=== PATIENT | male | born 1995 | race Caucasian/White ===

== ENCOUNTER 2017-01-14 09:59 | Inpatient (IN) | payer BC ==
[2017-01-14 12:44] VITALS: BMI 24.7
--- NOTE | 2017-01-14 13:14 | HP ---
COWS - Scale Resting Pulse: 1= OK 81-100 Sweatin= Chills/Flushing Restless Observation: 3= Extraneous Movement Pupil Size: 2= Moderately Dilated Bone or Joint Aches: 4=Acute Joint/Muscle Pain Runny Nose/ Eye Tearin= Nasal Congestion GI Upset > 30mins: 1= Stomach Cramp Tremor Observation: 1= Tremor [place], Not Seen Yawning Observation: 1= 1-2x During Session Anxiety or Irritability: 1=Feels Anxious/Irritable Goose Flesh Skin: 0=Smooth Skin COWS Score: 16 Admission [facility] Chief Complaint: DETOX [place] FOR OXYCONTIN DEPENDENCE Allergies/Adverse Reactions: Allergies Allergy/AdvReac Type Severity Reaction Status Date / Time No Known Allergies Allergy Verified 01/14/17 12:27 History of Present Illness: 21 Y/O MALE WITH A HX OF OXYCONTIN,XANAX( TOXICOLOGY NEGATIVE TODAY),MARIJUANA DEPENDENCE AND OCCASIONAL COCAINE USE SEEKING DETOX [place]. Exam Limitations: No Limitations - Ebola screening Have you traveled outside of the country in the last 21 days: No Have you had contact with anyone from an Ebola affected area: No Have you been sick,other than usual withdrawal symptoms: No Do you have a fever: No - Review of Systems Constitutional: Chills, Loss of Appetite, Night Sweats EENT: reports: Tearing, Nose Congestion, Dental Problems (HX CAVITIES) Respiratory: reports: No Symptoms reported Cardiac: reports: Lightheadedness GI: reports: Constipated, Nausea, Poor Appetite, Poor Fluid Intake, Vomiting, Abdominal cramping : reports: No Symptoms Reported Musculoskeletal: reports: Back Pain, Joint Pain, Muscle Pain Integumentary: reports: No Symptoms Reported Neuro: reports: No Symptoms reported Endocrine: reports: No Symptoms Reported Hematology: reports: No Symptoms Reported Psychiatric: reports: Orientated x3, Anxious Other Systems: Reviewed and Negative Patient History - Patient Medical History Hx Anemia: No Hx Asthma: No Hx Chronic Obstructive Pulmonary Disease (COPD): No Hx Cancer: No Hx Cardiac Disorders: No Hx Congestive Heart Failure: No Hx Hypertension: No Hx Hypercholesterolemia: No Hx Pacemaker: No HX Cerebrovascular Accident: No Hx Seizures: No Hx Dementia: No Hx Diabetes: No Hx Gastrointestinal Disorders: No Hx Liver Disease: No Hx Genitourinary Disorders: No Hx Sexually Transmitted Disorders: No Hx Renal Disease (ESRD): No Hx Thyroid Disease: No Hx Human Immunodeficiency Virus (HIV): No (09/10 LAST;NEGATIVE HX) Hx Hepatitis C: No Hx Depression: No Hx Suicide Attempt: No (DENIES) Hx Bipolar Disorder: No Hx Schizophrenia: No - Patient Surgical History Past Surgical History: No Hx Neurologic Surgery: No Hx Cataract Extraction: No Hx Cardiac Surgery: No Hx Lung Surgery: No Hx Breast Surgery: No Hx Breast Biopsy: No Hx Abdominal Surgery: No Hx Appendectomy: No Hx Cholecystectomy: No Hx Genitourinary Surgery: No Hx Orthopedic Surgery: No Anesthesia Reaction: No - PPD History Previous Implant?: Yes Documented Results: Negative w/proof Implanted On Prior R Admission?: Yes Date: 10/28/14 Results: 0 mm PPD to be Administered?: Yes - Reproductive History Patient is a Female of Child Bearing Age (11 -55 yrs old): No (MALE) - Smoking Cessation Smoking history: Current every day smoker Have you smoked in the past 12 months: Yes Aproximately how many cigarettes per day: 40 Cigars Per Day: 0 Hx Chewing Tobacco Use: No Initiated information on smoking cessation: Yes 'Breaking Loose' booklet given: 01/14/17 - Substance & Tx. History Hx Alcohol Use: Yes (BEER ONCE A MONTH--"NOT A PROBLEM") Hx Substance Use: Yes (OXYCONTIN/XANAX/MARIJUANA/COCAINE ON OCCASIONS.) Substance Use Type: Alcohol, Cocaine, Marijuana, Opiates, Tranquilizers Hx Substance Use Treatment: Yes ([facility]-DETOX) - Substances Abused Oxycodone Route: Oral Frequency: Daily Amount used: 8 tabs. (30 mg.) Age of first use: 17 Date of Last Use: 01/13/17 Xanax Route: Oral Frequency: 3-6 times per week Amount used: 6 mg. Age of first use: 17 Date of Last Use: 01/12/17 Marijuana Route: Smoking Frequency: Daily Amount used: $10 Age of first use: 17 Date of Last Use: 01/14/17 Cocaine Route: Inhalation Frequency: 1-3 times last 30 days (ONCE IN LAST 30 DAYS) Amount used: 2 WILLS BUMPS Age of first use: 17 Date of Last Use: 01/12/17 Family Disease History - Family Disease History Family History: Denies Admission Physical Exam BHS - Vital Signs Vital Signs: Vital Signs - 24 hr 01/14/17 12:31 Temperature 96.6 F L Pulse Rate 89 Respiratory 18 Rate Blood Pressure 102/57 - Physical General Appearance: Yes: Moderate Distress, Irritable, Anxious HEENTM: Yes: EOMI, Normocephalic, CRISTOBAL, Pharynx Normal Respiratory: Yes: Chest Non-Tender, Lungs Clear, Normal Breath Sounds, No Respiratory Distress Neck: Yes: Supple, Trachea in good position Breast: Yes: Breast Exam Deferred Cardiology: Yes: Regular Rhythm, Regular Rate, S1, S2 Abdominal: Yes: Normal Bowel Sounds, Non Tender, Soft Genitourinary: Yes: Other (N/C) Musculoskeletal: Yes: full range of Motion, Gait Steady Extremities: Yes: Normal Range of Motion, Non-Tender 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: 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: 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 NML intact, Fully Oriented, Alert, Motor Strength 5/5 Integumentary: Yes: Dry, Warm Lymphatic: Yes: Within Normal Limits - Diagnostic (1) Nicotine dependence Current Visit: Yes Status: Acute Qualifiers: Nicotine product type: cigarettes Substance use status: in withdrawal Qualified Code(s): F17.213 - Nicotine dependence, cigarettes, with withdrawal (2) Opioid dependence with withdrawal Current Visit: Yes Status: Acute (3) Cannabis dependence, uncomplicated Current Visit: Yes Status: Acute Cleared for Admission [facility] - Detox or Rehab [facility] Level of Care: Medically Managed Detox Regimen/Protocol: Methadone [facility] Breath Alcohol Content Breath Alcohol Content: 0 Urine Drug Screen - Results Drug Screen Negative: No Urine Drug Screen Results: THC-Marijuana, JAMIA-Cocaine, OPI-Opiates, OXY- Oxycodone
[2017-01-14] MEDS ORDERED: diphenhydrAMINE HCL 50 MG CAPSULE PO PRN (13:41)
[2017-01-14] MEDS ORDERED: MAG HYDROX/AL HYDROX/SIMETH 30 ML UNIT-DOSE CUP PO PRN (13:41)
[2017-01-14] MEDS ORDERED: P-EPHED 60MG/TRIPROLIDI 2.5MG TABLET PO PRN (13:41)
[2017-01-14] MEDS ORDERED: LOPERAMIDE HCL 2 MG CAPSULE PO PRN (13:41)
[2017-01-14] MEDS ORDERED: IBUPROFEN 400 MG TABLET (FP) PO PRN (13:41)
[2017-01-14] MEDS ORDERED: guaiFENesin/D-METHORPHAN HB 10 ML UNIT-DOSE CUPS PO PRN (13:41)
[2017-01-14] MEDS ORDERED: MENTHOL/PHENOL 1 EACH UD MM PRN (13:41)
[2017-01-14] MEDS ORDERED: ACETAMINOPHEN 325 MG TABLET (FP) PO PRN (13:41)
[2017-01-14] MEDS ORDERED: MAGNESIUM CITRATE 300 ML BOTTLE PO PRN (13:41)
[2017-01-14] MEDS ORDERED: MAGNESIUM HYDROX 2400MG/30ML ORAL SUSPENSION 30 ML CUP PO PRN (13:41)
[2017-01-14] MEDS ORDERED: METHADONE HCL 10 MG TABLET (FOR DETOX USE ONLY) PO ONE ×2 (14:00→23:00)
[2017-01-14] MEDS: diazePAM 5 MG TABLET PO PRN ×3 (14:19→22:08)
[2017-01-14] MEDS: NICOTINE 21 MG/24 HOURS TOPICAL PATCH TD SCH (14:27)
[2017-01-14] MEDS: hydrOXYzine PAMOATE 25 MG CAPSULE (FP) PO PRN (15:11)
[2017-01-14] MEDS: NICOTINE POLACRILEX 4 MG GUM BUC PRN ×2 (15:22→17:27)
--- NOTE | 2017-01-14 18:30 | CONSULT ---
[facility] Psychiatric Consult - Data Date of interview: 01/14/17 Admission source: [facility] Identifying data: Readmission to [facility] for this 21 y/[facility],cocaine,benzodiazepine (xanax) and marijuana dependence. Substance Abuse History: - Smoking Cessation. Smoking history: Current every day smoker. Have you smoked in the past 12 months: Yes. Aproximately how many cigarettes per day: 40. Cigars Per Day: 0. Hx Chewing Tobacco Use: No. Initiated information on smoking cessation: Yes. 'Breaking Loose' booklet given : 01/14/17. - Substance & Tx. History. Hx Alcohol Use: Yes (BEER ONCE A MONTH- -"NOT A PROBLEM"). Hx Substance Use: Yes (OXYCONTIN/XANAX/MARIJUANA/COCAINE ON OCCASIONS.). Substance Use Type: Alcohol, Cocaine, Marijuana, Opiates, Tranquilizers. Hx Substance Use Treatment: Yes ([facility]-DETOX). - Substances Abused. Oxycodone. Route: Oral. Frequency: Daily. Amount used: 8 tabs. ( 30 mg.). Age of first use: 17. Date of Last Use: 01/13/17. Xanax. Route: Oral. Frequency: 3-6 times per week. Amount used: 6 mg. Age of first use: 17. Date of Last Use: 01/12/17. Marijuana. Route: Smoking. Frequency: Daily. Amount used: $10. Age of first use: 17. Date of Last Use: 01/14/17. * * Cocaine. Route: Inhalation. Frequency: 1-3 times last 30 days (ONCE IN LAST 30 DAYS). Amount used: 2 WILLS BUMPS. Age of first use: 17. Date of Last Use: 01/12/17 Medical History: Patient endorses good general health. Psychiatric History: Patient denies. Physical/Sexual Abuse/Trauma History: Patient denies. Additional Comment: Urine Drug Screen Results: THC-Marijuana, JAMIA-Cocaine, OPI- Opiates, OXY-Oxycodone.Noted. Mental Status Exam - Mental Status Exam Alert and Oriented to: Time, Place, Person Cognitive Function: Good Patient Appearance: Well Groomed Mood: Hopeful, Euthymic Affect: Appropriate, Normal Range Patient Behavior: Fatigued, Appropriate, Cooperative Speech Pattern: Clear Voice Loudness: Normal Thought Process: Intact, Goal Oriented Thought Disorder: Not Present Hallucinations: Denies Suicidal Ideation: Denies Homicidal Ideation: Denies Insight/Judgement: Poor Sleep: Poorly, Difficulty falling asleep Appetite: Good Muscle strength/Tone: Normal Gait/Station: Normal Psychiatric Findings - Problem List ([place] 1, 2,3) (1) Opioid dependence with withdrawal Current Visit: Yes Status: Acute (2) Nicotine dependence Current Visit: Yes Status: Acute Qualifiers: Nicotine product type: cigarettes Substance use status: in withdrawal Qualified Code(s): F17.213 - Nicotine dependence, cigarettes, with withdrawal (3) Benzodiazepine dependence Current Visit: Yes Status: Acute (4) Cannabis dependence, uncomplicated Current Visit: Yes Status: Acute (5) Insomnia Current Visit: Yes Status: Acute - Initial Treatment Plan Initial Treatment Plan: Psychoeducation.Detoxification.Zolpidem 5 mg po hs prn.Side effects/benefits discussed with the patient.He agrees with this careplan.Observation.
[2017-01-14 18:31] LABS: URINE APPEARANCE CLEAR; URINE BILIRUBIN NEGATIVE (NEGATIVE); URINE BLOOD NEGATIVE (NEGATIVE); URINE COLOR YELLOW; URINE GLUCOSE (UA) NEGATIVE (NEGATIVE); URINE KETONE NEGATIVE (NEGATIVE); URINE LEUK ESTERASE NEGATIVE (NEGATIVE); URINE NITRITE NEGATIVE (NEGATIVE); URINE PROTEIN NEGATIVE (NEGATIVE); URINE UROBILINOGEN NEGATIVE E.U./dl (0.2-1.0)
[2017-01-14] MEDS: ZOLPIDEM TARTRATE 5 MG TABLET PO PRN (22:08)
[2017-01-14] MEDS: THIAMINE HCL 100 MG TABLET (FP) PO SCH (22:08)
[2017-01-15] MEDS: diazePAM 5 MG TABLET PO PRN ×4 (07:17→18:55)
[2017-01-15] MEDS: NICOTINE POLACRILEX 4 MG GUM BUC PRN ×3 (07:38→13:00)
[2017-01-15] MEDS ORDERED: METHADONE HCL 10 MG TABLET (FOR DETOX USE ONLY) PO ONE (10:00)
[2017-01-15] MEDS: NICOTINE 21 MG/24 HOURS TOPICAL PATCH TD SCH (10:21)
[2017-01-15] MEDS: PRENATAL VITAMINS W/ FOLIC ACID TABLET (FP) PO SCH (10:21)
[2017-01-15 10:35] LABS: MCH 28.9 pg (25.7-33.7); MCHC 33.7 g/dl (32.0-35.9); MEAN CELL VOLUME 85.7 fl (80-96); MEAN PLT VOLUME 9.1 fl (7.5-11.1); PLATELET COUNT 224 K/MM3 (134-434); RDW 13.4 % (11.9-15.9)
[2017-01-15 10:54] LABS: ALBUMIN 4.5 g/dl (3.4-5.0); ALK PHOS 89 U/L (45-117); ANION GAP 9 (8-16); BILIRUBIN,TOTAL 0.5 mg/dL (0.2-1.0); CALCIUM 9.6 mg/dL (8.5-10.1); CO2 32 mmol/L (21-32); GLUCOSE,RANDOM 87 mg/dL (74-106); SGOT/AST 24 U/L (15-37); SGPT/ALT 25 U/L (12-78); TOT PROT 7.1 g/dl (6.4-8.2)
[2017-01-15 11:19] LABS: HIV 1 & 2 AB NEGATIVE; HIV 1 AGp24 NEGATIVE
--- NOTE | 2017-01-15 12:01 | PN ---
S COWS - Scale Resting Pulse: 1= [place] 81-100 Sweatin= Chills/Flushing Restless Observation: 3= Extraneous Movement Pupil Size: 1= Pupils >than Normal Bone or Joint Aches: 2= Severe Diffuse Aches Runny Nose/ Eye Tearin= Runny Nose/Eyes GI Upset > 30mins: 2= Nausea/Diarrhea Tremor Observation of Outstretched Hands: 2= Slight Tremor Visible Yawning Observation: 1= 1-2x During Session Anxiety or Irritability: 2=Irritable/Anxious Goose Flesh Skin: 0=Smooth Skin COWS Score: 17 S Progress Note (SOAP) Subjective: ALERT,IRRITABLE,ANXIOUS,INTERRUPTED SLEEP,PAIN IN THE BODY AND JOINT,AND BACK Objective: 01/15/17 11:59 Vital Signs Temperature 98.6 F 01/15/17 09:57 Pulse Rate 90 01/15/17 09:57 Respiratory Rate 20 01/15/17 09:57 Blood Pressure 107/55 01/15/17 09:57 O2 Sat by Pulse Oximetry (%) EKG NSR,INCOMPLETE RBBB NO CHEST PAIN,NO SOB,NO DIZZINESS 01/15/17 12:00 Laboratory Last Values WBC 9.0 K/mm3 (4.0-10.0) D 01/15/17 05:50 RBC 5.20 M/mm3 (4.00-5.60) 01/15/17 05:50 Hgb 15.0 GM/dL (11.7-16.9) 01/15/17 05:50 Hct 44.6 % (35.4-49) 01/15/17 05:50 MCV 85.7 fl (80-96) 01/15/17 05:50 MCHC 33.7 g/dl (32.0-35.9) 01/15/17 05:50 RDW 13.4 % (11.9-15.9) 01/15/17 05:50 Plt Count 224 K/MM3 (134-434) 01/15/17 05:50 MPV 9.1 fl (7.5-11.1) 01/15/17 05:50 Sodium 139 mmol/L (136-145) 01/15/17 05:50 Potassium 4.3 mmol/L (3.5-5.1) 01/15/17 05:50 Chloride 98 mmol/L (98-107) 01/15/17 05:50 Carbon Dioxide 32 mmol/L (21-32) 01/15/17 05:50 Anion Gap 9 (8-16) 01/15/17 05:50 BUN 12 mg/dL (7-18) 01/15/17 05:50 Creatinine 1.0 mg/dL (0.7-1.3) D 01/15/17 05:50 Creat Clearance w eGFR > 60 (>60) 01/15/17 05:50 Random Glucose 87 mg/dL (74-106) 01/15/17 05:50 Calcium 9.6 mg/dL (8.5-10.1) 01/15/17 05:50 Total Bilirubin 0.5 mg/dL (0.2-1.0) D 01/15/17 05:50 AST 24 U/L (15-37) D 01/15/17 05:50 ALT 25 U/L (12-78) D 01/15/17 05:50 Alkaline Phosphatase 89 U/L (45-117) 01/15/17 05:50 Total Protein 7.1 g/dl (6.4-8.2) 01/15/17 05:50 Albumin 4.5 g/dl (3.4-5.0) 01/15/17 05:50 Urine Color Yellow 01/14/17 13:00 Urine Appearance Clear 01/14/17 13:00 Urine pH 8.0 (5.0-8.0) 01/14/17 13:00 Ur Specific [place] 1.027 (1.001-1.035) 01/14/17 13:00 Urine Protein Negative (NEGATIVE) 01/14/17 13:00 Urine Glucose (UA) Negative (NEGATIVE) 01/14/17 13:00 Urine Ketones Negative (NEGATIVE) 01/14/17 13:00 Urine Blood Negative (NEGATIVE) 01/14/17 13:00 Urine Nitrite Negative (NEGATIVE) 01/14/17 13:00 Urine Bilirubin Negative (NEGATIVE) 01/14/17 13:00 Urine Urobilinogen Negative E.U./dl (0.2-1.0) 01/14/17 13:00 Ur Leukocyte Esterase Negative (NEGATIVE) 01/14/17 13:00 RPR Titer Nonreactive (NONREACTIVE) 01/15/17 05:50 HIV 1&2 Antibody Screen Negative 01/15/17 09:00 HIV P24 Antigen Negative 01/15/17 09:00 Assessment: 01/15/17 12:01 WITHDRAWAL SYMPTOM Plan: CONTINUE DETOX
[2017-01-15] MEDS: hydrOXYzine PAMOATE 25 MG CAPSULE (FP) PO PRN (12:58)
[2017-01-15] MEDS: CYCLOBENZAPRINE HCL 10 MG TABLET (FP) PO PRN ×2 (12:58→22:05)
[2017-01-15] MEDS ORDERED: cloNIDine HCL 0.1 MG TABLET PO ONE (13:00)
--- NOTE | 2017-01-15 13:25 | EKG ---
Test Reason : Blood Pressure : / mmHG Vent. Rate : 069 BPM Atrial Rate : 069 BPM P-R Int : 150 ms QRS Dur : 108 ms QT Int : 394 ms P-R-T Axes : 073 052 047 degrees QTc Int : 422 ms NORMAL SINUS RHYTHM POSSIBLE LEFT ATRIAL ENLARGEMENT INCOMPLETE RIGHT BUNDLE BRANCH BLOCK BORDERLINE ECG NO PREVIOUS ECGS AVAILABLE Confirmed by KRISTA PAINTER MD ([id number]) on 01/15/2017 1:25:06 PM Referred By: Confirmed By:KRISTA PAINTER MD
[2017-01-15] MEDS: ZOLPIDEM TARTRATE 5 MG TABLET PO PRN (22:05)
[2017-01-15] MEDS: THIAMINE HCL 100 MG TABLET (FP) PO SCH (22:05)
[2017-01-15] MEDS: cloNIDine HCL 0.1 MG TABLET PO SCH (22:05)
[2017-01-16] MEDS: diazePAM 5 MG TABLET PO PRN ×4 (00:42→22:04)
[2017-01-16] MEDS ORDERED: METHADONE HCL 5 MG TABLET (FOR DETOX USE ONLY) PO ONE (10:00)
[2017-01-16] MEDS: NICOTINE 21 MG/24 HOURS TOPICAL PATCH TD SCH (10:13)
[2017-01-16] MEDS: cloNIDine HCL 0.1 MG TABLET PO SCH ×2 (10:14→22:04)
[2017-01-16] MEDS: PRENATAL VITAMINS W/ FOLIC ACID TABLET (FP) PO SCH (10:14)
--- NOTE | 2017-01-16 12:06 | PN ---
BHS COWS - Scale Resting Pulse: 1= PA 81-100 Sweatin=Flushed/Facial Moisture Restless Observation: 3= Extraneous Movement Pupil Size: 1= Pupils >than Normal Bone or Joint Aches: 2= Severe Diffuse Aches Runny Nose/ Eye Tearin= Runny Nose/Eyes GI Upset > 30mins: 2= Nausea/Diarrhea Tremor Observation of Outstretched Hands: 2= Slight Tremor Visible Yawning Observation: 1= 1-2x During Session Anxiety or Irritability: 2=Irritable/Anxious Goose Flesh Skin: 0=Smooth Skin COWS Score: 18 BHS Progress Note (SOAP) Subjective: alert,irritable,anxious,interrupted sleep,tremor,pain in the body and back Objective: 01/16/17 12:05 Vital Signs Temperature 97.9 F 01/16/17 09:32 Pulse Rate 92 H 01/16/17 09:32 Respiratory Rate 16 01/16/17 09:32 Blood Pressure 117/62 01/16/17 09:32 O2 Sat by Pulse Oximetry (%) Assessment: 01/16/17 12:05 withdrawal symptom Plan: continue detox
[2017-01-16] MEDS: CYCLOBENZAPRINE HCL 10 MG TABLET (FP) PO PRN (22:03)
[2017-01-16] MEDS: ZOLPIDEM TARTRATE 5 MG TABLET PO PRN (22:03)
[2017-01-16] MEDS: THIAMINE HCL 100 MG TABLET (FP) PO SCH (22:03)
[2017-01-17] MEDS: diazePAM 5 MG TABLET PO PRN ×2 (06:00→10:27)
[2017-01-17] MEDS ORDERED: METHADONE HCL 5 MG TABLET (FOR DETOX USE ONLY) PO ONE (10:00)
[2017-01-17] MEDS: PRENATAL VITAMINS W/ FOLIC ACID TABLET (FP) PO SCH (10:25)
[2017-01-17] MEDS: cloNIDine HCL 0.1 MG TABLET PO SCH ×2 (10:26→22:06)
[2017-01-17] MEDS: NICOTINE 21 MG/24 HOURS TOPICAL PATCH TD SCH (10:28)
--- NOTE | 2017-01-17 12:19 | PN ---
BHS Progress Note (SOAP) Subjective: ALERT,IRRITABLE,ANXIOUS,INTERRUPTED SLEEP,TREMOR,PAIN IN THE BODY AND BACK Objective: 01/17/17 12:18 Vital Signs Temperature 97.7 F 01/17/17 10:00 Pulse Rate 91 H 01/17/17 10:00 Respiratory Rate 16 01/17/17 10:00 Blood Pressure 114/63 01/17/17 10:00 O2 Sat by Pulse Oximetry (%) Assessment: 01/17/17 12:19 WITHDRAWAL SYMPTOM Plan: CONTINUE DETOX
[2017-01-17] MEDS: hydrOXYzine PAMOATE 25 MG CAPSULE (FP) PO PRN ×2 (14:32→22:06)
[2017-01-17] MEDS: NICOTINE POLACRILEX 4 MG GUM BUC PRN (17:35)
[2017-01-17] MEDS: THIAMINE HCL 100 MG TABLET (FP) PO SCH (22:06)
[2017-01-17] MEDS: ZOLPIDEM TARTRATE 5 MG TABLET PO PRN (22:06)
[2017-01-17] MEDS: CYCLOBENZAPRINE HCL 10 MG TABLET (FP) PO PRN (22:06)
[2017-01-18] MEDS: hydrOXYzine PAMOATE 25 MG CAPSULE (FP) PO PRN ×3 (02:57→13:55)
[2017-01-18] MEDS ORDERED: METHADONE HCL 10 MG TABLET (FOR DETOX USE ONLY) PO ONE (10:00)
[2017-01-18] MEDS: PRENATAL VITAMINS W/ FOLIC ACID TABLET (FP) PO SCH (10:09)
[2017-01-18] MEDS: cloNIDine HCL 0.1 MG TABLET PO SCH ×2 (10:10→22:04)
[2017-01-18] MEDS: CYCLOBENZAPRINE HCL 10 MG TABLET (FP) PO PRN ×2 (10:10→22:04)
[2017-01-18] MEDS: NICOTINE 21 MG/24 HOURS TOPICAL PATCH TD SCH (10:10)
[2017-01-18] MEDS: NICOTINE POLACRILEX 4 MG GUM BUC PRN (12:21)
--- NOTE | 2017-01-18 13:01 | PN ---
BHS Progress Note (SOAP) Subjective: sweats, constipation Objective: 01/18/17 12:59 Vital Signs Temperature 97.7 F 01/18/17 09:55 Pulse Rate 84 01/18/17 09:55 Respiratory Rate 18 01/18/17 09:55 Blood Pressure 124/61 01/18/17 09:55 O2 Sat by Pulse Oximetry (%) Laboratory Tests 01/14/17 01/15/17 01/15/17 13:00 05:50 05:50 WBC 9.0 D RBC 5.20 Hgb 15.0 Hct 44.6 MCV 85.7 MCHC 33.7 RDW 13.4 Plt Count 224 MPV 9.1 Sodium 139 Potassium 4.3 Chloride 98 Carbon Dioxide 32 Anion Gap 9 BUN 12 Creatinine 1.0 D Creat Clearance w eGFR > 60 Random Glucose 87 Calcium 9.6 Total Bilirubin 0.5 D AST 24 D ALT 25 D Alkaline Phosphatase 89 Total Protein 7.1 Albumin 4.5 Urine Color Yellow Urine Appearance Clear Urine pH 8.0 Ur Specific [place] 1.027 Urine Protein Negative Urine Glucose (UA) Negative Urine Ketones Negative Urine Blood Negative Urine Nitrite Negative Urine Bilirubin Negative Urine Urobilinogen Negative Ur Leukocyte Esterase Negative RPR Titer HIV 1&2 Antibody Screen HIV P24 Antigen 01/15/17 01/15/17 05:50 09:00 WBC RBC Hgb Hct MCV MCHC RDW Plt Count MPV Sodium Potassium Chloride Carbon Dioxide Anion Gap BUN Creatinine Creat Clearance w eGFR Random Glucose Calcium Total Bilirubin AST ALT Alkaline Phosphatase Total Protein Albumin Urine Color Urine Appearance Urine pH Ur Specific [place] Urine Protein Urine Glucose (UA) Urine Ketones Urine Blood Urine Nitrite Urine Bilirubin Urine Urobilinogen Ur Leukocyte Esterase RPR Titer Nonreactive HIV 1&2 Antibody Screen Negative HIV P24 Antigen Negative pt aox3 in nad ambulating Assessment: 01/18/17 13:00 withdrawl sx's Plan: cont. detox increase fluids d/c in am imodium prn
--- NOTE | 2017-01-18 15:06 | CONSULT ---
[facility] Psychiatric Consult - Data Date of interview: 01/18/17 Admission source: [facility] Psychiatric Findings - Problem List ([place] 1, 2,3) (1) Opioid dependence with withdrawal Current Visit: Yes Status: Acute (2) Nicotine dependence Current Visit: Yes Status: Acute Qualifiers: Nicotine product type: cigarettes Substance use status: in withdrawal Qualified Code(s): F17.213 - Nicotine dependence, cigarettes, with withdrawal (3) Benzodiazepine dependence Current Visit: Yes Status: Acute (4) Cannabis dependence, uncomplicated Current Visit: Yes Status: Acute (5) Insomnia Current Visit: Yes Status: Acute
[2017-01-18] MEDS: ZOLPIDEM TARTRATE 5 MG TABLET PO PRN (22:04)
[2017-01-18] MEDS: THIAMINE HCL 100 MG TABLET (FP) PO SCH (22:04)
[2017-01-19] MEDS ORDERED: METHADONE HCL 5 MG TABLET (FOR DETOX USE ONLY) PO ONE (06:00)
--- NOTE | 2017-01-19 08:54 | DS ---
[facility] Detox Discharge Summary Admission Date: 01/14/17 Discharge Date: 01/19/17 - History Present History: Alcohol Dependence, Cannabis Dependence, Opioid Dependence, Sedative Dependence - Physical Exam Results Vital Signs: Vital Signs Temperature 97.9 F 01/19/17 06:00 Pulse Rate 73 01/19/17 06:00 Respiratory Rate 18 01/19/17 06:00 Blood Pressure 104/60 01/19/17 06:00 O2 Sat by Pulse Oximetry (%) - Treatment Hospital Course: Detox Protocol Followed, Detoxed Safely, Responded well, Discharged Condition Good, Rehab Referral Accepted - Medication Discharge Medications: Ambulatory Orders NK [No Known Home Medication] 01/14/17 - Diagnosis (1) Alcohol dependence Current Visit: Yes Status: Chronic Qualifiers: Substance use status: uncomplicated Qualified Code(s): F10.20 - Alcohol dependence, uncomplicated (2) Benzodiazepine dependence Current Visit: Yes Status: Chronic (3) Cannabis dependence, uncomplicated Current Visit: Yes Status: Chronic (4) Insomnia Current Visit: Yes Status: Acute (5) Nicotine dependence Current Visit: Yes Status: Chronic Qualifiers: Nicotine product type: cigarettes Substance use status: uncomplicated Qualified Code(s): F17.210 - Nicotine dependence, cigarettes, uncomplicated (6) Opioid dependence with withdrawal Current Visit: Yes Status: Chronic (7) Substance-induced anxiety disorder Current Visit: No Status: Acute (8) Syncope Current Visit: No Status: Acute (9) Upper respiratory infection Current Visit: No Status: Acute (10) Weight decreased Current Visit: No Status: Acute - AMA Did Patient Leave Against Medical Advice: No
[2017-01-19 10:03] VITALS: BP 106/57; PULSE 100; TEMP 97
== END 2017-01-19 10:18 | disposition home or self-care (01) | DRG 897 ==
LOC: YASAS 09:59 → Y6N 13:07
PROVIDERS: ADMIT Internal Medicine; ATTEND Internal Medicine
PROC: HZ2ZZZZ Detoxification Services for Substance Abuse Treatment (ICD-10-PCS; principal; 2017-01-14)
DX: F11.23 Opioid dependence with withdrawal (principal); F13.20 Sedative, hypnotic or anxiolytic dependence, uncomplicated; F19.280 Other psychoactive substance dependence with psychoactive substance-induced anxiety disorder; F10.20 Alcohol dependence, uncomplicated; F12.20 Cannabis dependence, uncomplicated; F17.210 Nicotine dependence, cigarettes, uncomplicated; G47.00 Insomnia, unspecified; J06.9 Acute upper respiratory infection, unspecified; I45.10 Unspecified right bundle-branch block; Z86.79 Personal history of other diseases of the circulatory system; Z87.898 Personal history of other specified conditions
CPT/HCPCS: 36415; 80053; 81003; 85027; 86593; 87389; 93005; 93010

== ENCOUNTER 2021-10-15 11:18 | Emergency (ER) | payer BC ==
[2021-10-15 11:36] VITALS: BP 103/50; PULSE 53; TEMP 98.2; BMI 26.5
[2021-10-15] MEDS ORDERED: KETOROLAC TROMETHAMINE 15 MG/ML VIAL IM ONE (11:41)
[2021-10-15] MEDS ORDERED: ACETAMINOPHEN 325 MG TABLET (FP) PO ONE (11:41)
[2021-10-15] MEDS ORDERED: KETOROLAC TROMETHAMINE 30 MG/1 ML VIAL ONE (11:53)
[2021-10-15] MEDS ORDERED: ACETAMINOPHEN 325 MG TABLET (FP) ONE (11:53)
== END 2021-10-15 12:01 | disposition home or self-care (01) ==
LOC: FER 11:18
PROC: 3E0233Z Introduction of Anti-inflammatory into Muscle, Percutaneous Approach (ICD-10-PCS; principal; 2021-10-15)
DX: R07.89 Other chest pain (principal); X50.0XXA Overexertion from strenuous movement or load, initial encounter
CPT/HCPCS: 93005; 99284-25

== ENCOUNTER 2022-12-25 15:22 | Emergency (ER) | payer BC ==
[2022-12-25 15:43] VITALS: BP 106/56; PULSE 56; RESP 16; TEMP 98.6; BMI 26.5
[2022-12-25] MEDS ORDERED: KETOROLAC TROMETHAMINE 60 MG/2 ML VIAL IM ONE (15:55)
[2022-12-25] MEDS ORDERED: KETOROLAC TROMETHAMINE 60 MG/2 ML VIAL ONE (16:09)
== END 2022-12-25 17:32 | disposition home or self-care (01) ==
LOC: FER 15:22
PROC: 3E0233Z Introduction of Anti-inflammatory into Muscle, Percutaneous Approach (ICD-10-PCS; principal; 2022-12-25)
DX: S22.32XA Fracture of one rib, left side, initial encounter for closed fracture (principal); V00.311A Fall from snowboard, initial encounter; Y93.23 Activity, snow (alpine) (downhill) skiing, snowboarding, sledding, tobogganing and snow tubing
CPT/HCPCS: 71101-TC-LT-FY; 99284-25

== ENCOUNTER 2023-04-03 17:11 | Emergency (ER) | payer BC ==
[2023-04-03] MEDS ORDERED: DIPHTH,PERTUSS(ACELL),TET 0.5 ML DISP.SYRIN IM ONE ×2 (17:18→17:25)
[2023-04-03 17:25] VITALS: BP 123/74; PULSE 69; RESP 20; TEMP 97.9; BMI 26.5
== END 2023-04-03 17:44 | disposition home or self-care (01) ==
LOC: FER 17:11
PROC: 3E0234Z Introduction of Serum, Toxoid and Vaccine into Muscle, Percutaneous Approach (ICD-10-PCS; principal; 2023-04-03)
DX: S80.811A Abrasion, right lower leg, initial encounter (principal); W22.09XA Striking against other stationary object, initial encounter
CPT/HCPCS: 90715; 99284-25

== ENCOUNTER 2024-04-24 18:03 | Emergency (ER) | payer BC ==
[2024-04-24] MEDS ORDERED: IBUPROFEN 600 MG TABLET (FP) PO ONE (18:33)
[2024-04-24] MEDS: IBUPROFEN 600 MG TABLET (FP) PO ONE (18:41)
[2024-04-24 18:48] VITALS: BP 117/71; PULSE 86; RESP 20; TEMP 98.1; BMI 27.2
== END 2024-04-24 19:55 | disposition home or self-care (01) ==
LOC: FER 18:03
DX: S93.401A Sprain of unspecified ligament of right ankle, initial encounter (principal); X50.1XXA Overexertion from prolonged static or awkward postures, initial encounter; Y93.01 Activity, walking, marching and hiking; Y99.0 Civilian activity done for income or pay
CPT/HCPCS: 73610-TC-RT-FY; 73630-TC-RT-FY; 99283-25